=== PATIENT | female | born 1955 | race Caucasian/White ===

== ENCOUNTER 2023-05-28 14:30 | Emergency (ER) | payer MEDICARE, OTHER ==
[~2023-05-28] VITALS: Ht 177.8 cm; Wt 113.6 kg
[2023-05-28 14:49] VITALS: TEMP 98.4
[2023-05-28 15:18] LABS: BASO % 0.5 % (0.0-2.0); EOS % 0.5 % (0.0-4.0); GRAN # 6.8 K/mm3 (1.4-6.5); HEMATOCRIT 38.5 % (37.0-47.0); HEMOGLOBIN 12.6 g/dl (12.5-16.0); LYMPH # 0.8 K/mm3 (1.2-3.4); LYMPH % 10.4 % (20.0-51.0); MEAN CELL VOLUME 93 fl (80.0-100.0); MEAN CORPUSCULAR HEMOGLOBIN 30 pg (27-31); MEAN CORPUSCULAR HGB CONC 33 g/dl (33.0-37.0); MEAN PLATELET VOLUME 10.3 fl (7.4-10.4); MONO # 0.3 K/mm3 (0.1-0.6); MONO % 4.2 % (1.7-9.3); PLATELET COUNT 243 K/mm3 (130-400); RED BLOOD COUNT 4.14 M/mm3 (4.10-5.30); REDCELL DISTRIBUTION WIDTH-CV 12.8 % (11.5-14.5)
[2023-05-28 15:24] LABS: INR 1.1 (0.8-3.0); PROTHROMBIN TIME 12.4 SECONDS (9.7-12.8)
[2023-05-28 15:33] LABS: ALBUMIN 3.9 gm/dL (3.4-4.8); BILIRUBIN,TOTAL 1.1 mg/dL (0.2-1.2); CALCIUM 9.9 mg/dL (8.4-10.2); CREATININE, serum 1.36 mg/dL (0.57-1.11); POTASSIUM 4.2 mmol/L (3.5-4.5); TOTAL PROTEIN 6.5 gm/dL (6.2-8.1)
[2023-05-28 15:52] LABS: TSH w REFLEX 0.924 uIU/mL (0.350-4.940)
[2023-05-28 16:26] LABS: COLLECTION METHOD CLEAN CATCH
[2023-05-28 16:40] LABS: PH 6.5 (5.0-8.5); URINE APPEARANCE Clear (CLEAR/HAZY); URINE COLOR Yellow (YELLOW); URINE PROTEIN(semi-quant) Negative (NEGATIVE)
[2023-05-28 16:41] LABS: SQUAMOUS EPITHELIAL 0-2 /hpf (0-10); URINE BACTERIA None Seen /hpf (NONE SEEN); URINE BLOOD Negative (NEGATIVE); URINE GLUCOSE Negative (NEGATIVE); URINE KETONE Negative (NEGATIVE); URINE NITRATE Negative (NEGATIVE); URINE RBC None Seen /hpf (0-2); URINE UROBILINOGEN 0.2 E.U/dL (0.2-1.0)
[2023-05-28 18:12] VITALS: BP 184/93; PULSE 83
== END 2023-05-28 18:25 | disposition short-term general hospital (02) ==
LOC: COL.ER 14:30
PROVIDERS: Family Medicine
DX: S42.301A Unspecified fracture of shaft of humerus, right arm, initial encounter for closed fracture (principal); I69.320 Aphasia following cerebral infarction; W18.30XA Fall on same level, unspecified, initial encounter; W22.8XXA Striking against or struck by other objects, initial encounter
CPT/HCPCS: Q9967

== ENCOUNTER → 2023-07-16 | Outpatient (CLI) | payer MEDICARE, OTHER ==
[~2023-07-16] MED LIST: AMITRIPTYLINE H10 M1 PO; ASPIRIN 81M81 MG/TA2 PO; ASPIRIN E.C. 8181 MG PO; CATAPRES 0.1MG0.1 MG PO; COREG 25MG25 MG/TAB PO; HCTZ 25MG TAB25 MG PO; KRISTALOSE20 GM/PACK; LIPITOR 80MG80 MG PO; NORCO 325 MG-51 TAB PO; NORVASC 10MG10 MG PO; PLAVIX 75MG TAB75 MG PO; PRINIVIL40 MG PO; PROTONIX20 MG PO; SALONPAS1 EACH TP; TOPROL XL 50MG50 MG PO; TYLENOL 8 HR PO; XANAX .25M0.25 MG/TA PO; ZANAFLEX2 MG PO
== END ==
LOC: MHCPAIN 15:02
DX: I63.9 Cerebral infarction, unspecified (principal); I63.311 Cerebral infarction due to thrombosis of right middle cerebral artery; G81.91 Hemiplegia, unspecified affecting right dominant side
CPT/HCPCS: G0463

== ENCOUNTER → 2023-09-03 | Outpatient (CLI) | payer MEDICARE, OTHER | LOC: COL.RAD 09:27 | DX: R41.89 Other symptoms and signs involving cognitive functions and awareness (principal); R53.1 Weakness; R51.9 Headache, unspecified; Z86.73 Personal history of transient ischemic attack (TIA), and cerebral infarction without residual deficits; Z91.81 History of falling ==

== ENCOUNTER 2023-09-24 09:00 | Outpatient (RCR) | payer MEDICARE, OTHER | END 2023-09-25 | disposition home or self-care (01) | LOC: MKS.ESL.PT | DX: I69.351 Hemiplegia and hemiparesis following cerebral infarction affecting right dominant side (principal) ==

== ENCOUNTER 2024-01-21 11:15 | Outpatient (RCR) | payer MEDICARE, OTHER | END 2024-01-25 | disposition home or self-care (01) | LOC: MKS.ESL.OT | DX: I69.351 Hemiplegia and hemiparesis following cerebral infarction affecting right dominant side (principal) ==